=== PATIENT | female | born 1995 | race Caucasian/White ===

== ENCOUNTER 2017-02-02 16:12 | Emergency (ER) | payer OTHER ==
[~2017-02-02] VITALS: Ht 157.5 cm; Wt 59.1 kg
[2017-02-02] MEDS ORDERED: HYDROcodone/APAP 5/325 TABLET PO STA (16:39)
[2017-02-02] MEDS ORDERED: HYDROcodone/APAP 5/325 TABLET ONE (16:55)
[2017-02-02] MEDS ORDERED: ONDANSETRON ODT 4 MG ONE (16:55)
[2017-02-02] MEDS ORDERED: ONDANSETRON ODT 4 MG PO ONE (17:00)
[2017-02-02 17:21] VITALS: BP 127/67
== END 2017-02-02 17:23 | disposition home or self-care (01) ==
LOC: ED 17:00
DX: S93.492A Sprain of other ligament of left ankle, initial encounter (principal); X50.1XXA Overexertion from prolonged static or awkward postures, initial encounter; Y93.02 Activity, running; Y99.8 Other external cause status; Y92.488 Other paved roadways as the place of occurrence of the external cause
CPT/HCPCS: 73610; 99284; Q0162